=== PATIENT | female | born 1995 | race Caucasian/White ===

== ENCOUNTER 2023-10-16 23:18 | Emergency (ER) | payer SELFPAY ==
[2023-10-16 23:33] VITALS: BP 113/77
[2023-10-17 00:09] VITALS: BMI 27.7
[2023-10-17] MEDS: VANCOCIN 540 MG IV (00:18)
[2023-10-17 00:34] LABS: % Basophils 0.3 % (0-2); % Eosinophils 0.8 % (0-6); % Immature Granulocytes 1.3 % (0-0.5); % Lymphocytes 20.4 % (20.5-51.1); % Monocytes 7.1 % (1.7-9.3); % Neutrophils 70.1 % (42.2-75.2); Absolute Eosinophils 0.1 10^3/uL (0-0.7); Absolute Immature Granulocytes 0.1 10^3/uL (0-0.05); Absolute Lymphocytes 1.8 10^3/uL (1.2-3.4); Absolute Monocytes 0.6 10^3/uL (0.1-0.6); Absolute Neutrophils 6.3 10^3/uL (1.4-6.5); Hematocrit 36.7 % (37.0-47.0); Hemoglobin 12.8 g/dL (12.0-16.0); Mean Corp Hgb Conc. 34.9 g/dL (33.0-37.0); Mean Corpuscular Hgb 31.8 pg (27.0-31.0); Mean Corpuscular Volume 91.3 fL (81.0-99.0); Mean Platelet Volume 9.8 fL (7.4-10.4); Nucleated Red Blood Cells % 0 %; Platelet Count 241 10^3/uL (130-400); Red Blood Cell Count 4.02 10^6/uL (4.20-5.40); Red Cell Dist. Width 11.5 % (11.5-14.5)
[2023-10-17 00:38] LABS: Lactic Acid 1.1 mmol/L (0.7-2.0)
--- NOTE | 2023-10-17 00:48 | ED.GENMED ---
History of Present Illness
General
Chief Complaint: Skin Problem
Source: patient and audio engineer (Family at bedside interpreting)
Exam Limitations: none
Time Seen by Provider: 10/16/23 23:55
Nursing documentation reviewed up to this point in time: agreed with
History of Present Illness
History of Present Illness:
This is a 28-year-old female who has no significant past medical history admits to attempting to pop a right facial pimple 1 week ago with extrusion of exudate but then developed an additional skin abscess pimple just lateral to the initial abscess
that has gotten much larger and painful over the past several days with onset of generalized right cheek swelling and redness today. She has not had a fever nor chills. She denies sore throat, no dental pain, no ear pain nor headache, no neck
pain. No history of similar episodes in the past.
She has been taking ibuprofen intermittently with last dose at 1 PM.
She takes no medicines on a daily basis.
Denies risk of .
Notes history of allergy to penicillin which causes an itchy rash.
Patient currently lacks primary healthcare provider but does have healthcare insurance. She resides in [place].
Past History
Past History
ED Past Medical History: None
ED Past Surgical History: None
Social History
Tobacco: Non-smoker
Alcohol: None
Drug: None
Living: with family
Family History
Family History: Other (Noncontributory)
Phy Exam
Physical Exam
Physical Exam:
GENERAL: 28-year-old female appears her stated age, awake and alert, pleasant, appears mildly uncomfortable. Afebrile, normotensive.
EYE: pupils equal and reactive. anicteric. There is mild right inferior orbital soft tissue swelling with minimal erythema.
NECK: Supple, nontender, no meningismus, no significant adenopathy.
ENT: posterior pharynx is clear, oral mucosa is moist. TM clear b/l, nares patent. There is a firm subcutaneous abscess right lateral cheek with central area of dry eschar. Abscess is quite firm approximately 2 cm x 3 cm without fluctuance nor
pointing. There is a smaller/resolving abscess just medial to this larger abscess. There is moderate global soft tissue swelling and minimal erythema to the right cheek. Mild palpable heat. Moderate local tenderness to palpation.
CARDIAC: Regular rate and rhythm. no murmur.
LUNGS: Clear breath sounds bilaterally, no acute respiratory distress, no wheezes/rales/rhonchi
ABDOMEN: Soft, nondistended, without focal tenderness, no r/g, no cvat. normoactive BS.
NEUROLOGICAL: Alert and oriented x3, no focal neuro deficits. Gait is banks and steady.
SKIN: Warm and dry, normal color, good turgor.
MUSCULOSKELETAL: No C/C/E. peripheral pulses are full and equal b/l. No palpable tenderness.
PSYCH: Normal and appropriate interaction.
Course
Orders/Labs/Results
Orders:
Orders
10/17/23 00:11
Test Result ONCE
10/17/23 00:13
Basic Metabolic Panel Urgent
CRP [C-Reactive Protein] Urgent
Complete Blood Count/With Diff Urgent
HCG, Serum Qualitative Screen Urgent
Lactic Acid Urgent
Vancomycin [Vancocin] 2,000 mg 0.9% Sodium Chloride 500 ml [Nss] 500 ml IV NOW
10/17/23 00:54
Diphenhydramine [Benadryl] 25 mg IV NOW STA
10/17/23 00:55
Diphenhydramine [Benadryl] 50 mg .ROUTE .STK-MED ONE
10/17/23 02:45
Diphenhydramine [Benadryl] 25 mg IV NOW STA
10/17/23 02:46
Ketorolac [Toradol] 30 mg IV NOW STA
Abnormal Lab Results
10/17/23
00:13
RBC 4.02 L 10^6/uL
(4.20-5.40)
Hct 36.7 L %
(37.0-47.0)
MCH 31.8 H pg
(27.0-31.0)
Abs Immat Gran (auto) 0.1 H 10^3/uL
(0-0.05)
Immature Gran % 1.3 H %
(0-0.5)
Lymphocytes % 20.4 L %
(20.5-51.1)
Glucose 105 H mg/dl
(70-99)
C-Reactive Protein 51.30 H mg/L
(0.0-10.00)
10/17/23 00:13
10/17/23 00:13
Vital Signs
Initial and Last Documented VS:
Initial Vital Signs
Temp Pulse Resp BP Pulse Ox
98.7 F 85 16 113/77 100
10/16/23 23:33 10/16/23 23:33 10/16/23 23:33 10/16/23 23:33 10/16/23 23:33
Last Documented Vital Signs
Temp Pulse Resp BP Pulse Ox
98.7 F 85 16 113/77 100
10/16/23 23:33 10/16/23 23:33 10/16/23 23:33 10/16/23 23:33 10/16/23 23:33
*Pulse Oximetry
Patient hypoxic: no
*Critical Care Note
Total Time (30-74mins, 75-104mins- exclusive of procedures): Not Applicable
Update Note
Update Note:
Patient resting comfortably. She remains afebrile.
Labs show normal white blood cell count, normal lactic acid. Moderately elevated CRP at 51.
She has been given a bolus dose of vancomycin for coverage of potential MRSA and will discharge to home with a 10-day course of doxycycline as well as prescription for ibuprofen for as needed pain.
Recommend local moist heat, elevating head of bed and prompt follow-up with PCP for recheck.
Return precautions discussed.
ED Attending Note
-
Portions of this chart may have been created with voice recognition software.� Occasional wrong word or��sound alike� substitutions may have occurred due to the inherent limitations of voice recognition software.
Discharge Plan
Departure
Patient Disposition: Home (Routine Discharge)
Date of Disposition: 10/17/23
Time of Disposition: 03:25
Patient with high blood pressure during this ER visit?: No
Condition: Good
Discharge Problem:
Cellulitis and abscess of face
Instructions: Cellulitis (Skin Infection), Adult (DC), Skin Abscess
Prescriptions:
New
ibuprofen 800 mg tablet
800 mg PO QIDPRN PRN (Reason: pain, fever) Qty: 30 0RF
doxycycline monohydrate 100 mg capsule
100 mg PO BID Qty: 20 1RF
Referrals:
[facility] [Provider Group] - Call in 1-3 days for appt
NONE,* [Family Provider] -
Interventions
Interventions:
*Risk Screen - Suicide Last Done: 10/16/23 23:33
*General Assessment Last Done: 10/16/23 23:33
*Neglect/Abuse Screening Last Done: 10/16/23 23:33
ED- Fall Risk Assessment Last Done: 10/17/23 00:25
Discharge Date and Time
Print Language: THAI
[2023-10-17] MEDS: BENADRYL 25 MG IV ×2 (00:57→02:46)
--- NOTE | 2023-10-17 01:04 | EDRN ---
Patient calls me into the room, she is having some redness and itching to her chest, informed Dr. Lassiter who wants to give Benadryl and slow down vancomycin and check to see how she is tolerating, no airway involvement
[2023-10-17 01:05] LABS: Blood Urea Nitrogen 14 mg/dl (7-17); Calcium 9.6 mg/dl (8.4-10.2); Carbon Dioxide 25 mmol/L (22-30); Chloride 104 mmol/L (98-107); Estimated Creatinine Clearance 113 ml/min; Glucose 105 mg/dl (70-99); Potassium 3.5 mmol/L (3.5-5.1); Sodium 139 mmol/L (135-145); eGFR > 60.00
--- NOTE | 2023-10-17 01:30 | EDRN ---
Patient feeling much better, not as itchy or red.
[2023-10-17 01:59] LABS: HCG, Serum Qualitative Screen Negative
--- NOTE | 2023-10-17 02:45 | EDRN ---
Patient starting to feel itchy again and red, Dr. Lassiter aware more benadryl ordered and given.
[2023-10-17] MEDS: TORADOL 30 MG IV (02:50)
--- NOTE | 2023-10-17 04:11 | EDRN ---
Patient ok to discharge, itching and redness is subsiding, went over discharge paperwork as well with patient.
== END 2023-10-17 04:24 | disposition home or self-care (01) ==
LOC: EMR 23:18
PROVIDERS: EMERGENCY PHYSICIAN Emergency Medicine
DX: L03.211 Cellulitis of face (principal); L02.01 Cutaneous abscess of face; Z88.0 Allergy status to penicillin
CPT/HCPCS: 99284; 96365; 96366; 96375 ×2; 96376; 80048; 83605; 84703; 85025; 86140